=== PATIENT | female | born 1990 | race Caucasian/White ===

== ENCOUNTER 2025-05-22 12:12 | Emergency (ER) | payer BC, SELFPAY ==
[2025-05-22 12:30] VITALS: BP 137/93
--- NOTE | 2025-05-22 14:30 | ED.GENMED ---
History of Present Illness
General
Chief Complaint: Rabies
Source: patient
Exam Limitations: none
Time Seen by Provider: 05/22/25 13:42
History of Present Illness
History of Present Illness:
35-year-old female with no clinically significant past medical history is here with her family, they awakened with a bat in their home today informed to come get rabies shots. No known immediate exposure
Past History
Past History
ED Past Medical History: None
ED Past Surgical History: Tonsilectomy
Social History
Tobacco: Non-smoker
Personal:
Living: with family
Review of Systems
Review of Systems
Allergies reviewed?: Yes
All Other Systems: ROS reviewed and negative except as documented in HPI and ROS
Phy Exam
Physical Exam
Physical Exam:
GENERAL: No acute distress. A&Ox3.
CONSTITUTIONAL: Afebrile.
EYES: clear, conjunctivae normal
ENMT: moist mucus membranes, Pharynx nl
RESPIRATORY: Regular respirations, nonlabored, lungs clear.
CARDIOVASCULAR: Regular rate and rhythm, no murmurs, no rubs.
GI: Soft, nontender
MUSCULOSKELETAL: Moves with ease. Well perfused.
SKIN: Warm, dry, pink
PSYCH: Normal mood and affect. Well kept, interactive and appropriate
NEUROLOGIC: Awake, alert and oriented. No focal neurological deficits
Course
Orders/Labs/Results
Orders:
Orders
05/22/25 14:37
Rabies Immune Globulin/Pf [HyperRAB] 1,800 unit IM NOW STA
05/22/25 14:45
Rabies Vaccine (Pcec)/Pf [Rabavert Rabies Vacc W-Diluent] 2.5 unit IM .ONCE ONE
Vital Signs
Initial and Last Documented VS:
Initial Vital Signs
Temp Pulse Resp BP Pulse Ox
98.2 F 94 18 137/93 98
05/22/25 12:30 08/25/25 12:30 05/22/25 12:30 05/22/25 12:30 05/22/25 12:30
Last Documented Vital Signs
Temp Pulse Resp BP Pulse Ox
98.2 F 94 18 137/93 98
05/22/25 12:30 05/22/25 12:30 05/22/25 12:30 05/22/25 12:30 05/22/25 14:33
MDM/Problems Addressed
MDM/Problems Addressed:
35-year-old female with no clinically significant past medical history is here with her family, they awakened with a bat in their home today informed to come get rabies shots. No known immediate exposure
Rabies immunization protocol initiated
*Pulse Oximetry
SaO2: 98
Oxygen Mode of Delivery: Room air
Patient hypoxic: not evaluated
*Critical Care Note
Total Time (30-74mins, 75-104mins- exclusive of procedures): Not Applicable
ED Attending Note
-
Portions of this chart may have been created with voice recognition software.� Occasional wrong word or��sound alike� substitutions may have occurred due to the inherent limitations of voice recognition software.
Discharge Plan
Departure
Patient Disposition: Home (Routine Discharge)
Date of Disposition: 05/22/25
Time of Disposition: 15:33
Patient with high blood pressure during this ER visit?: No
Condition: Good
Discharge Problem:
Need for immunization against rabies
Prescriptions:
New
RabAvert (PF) 2.5 unit Suspension For Reconstitution
1 ml IM . DIRECTED Qty: 3 0RF
Rx Instructions:
See Rabies Vaccine Post Exposure Prophylaxis Instruction Sheet for Dosing Instructions
Stand Alone Forms: Rabies Vaccine Post Exp Dosing
Activity Restrictions/Additional Instructions:
As we discussed, call the outpatient infusion center at [phone] and make the appointment for your next rabies vaccines.
Take your prescription with you.
You will have to bring the children back here as the outpatient infusion center does not take pediatric patients.
Interventions
Interventions:
*Risk Screen - Suicide Last Done: 05/22/25 12:30
*Neglect/Abuse Screening Last Done: 05/22/25 12:30
*Nursing Disposition Last Done: 05/22/25 15:45
Discharge Date and Time
Discharge Date/Time: 05/22/25 16:42
Print Language: KOREAN
[2025-05-22] MEDS: RABAVERT RABIES VACC W-DILUENT 2.5 UNIT IM (15:20)
== END 2025-05-22 16:42 | disposition home or self-care (01) ==
LOC: EMR 12:12
PROVIDERS: EMERGENCY PHYSICIAN Emergency Medicine; FAMILY PHYSICIAN Family Medicine
DX: Z20.3 Contact with and (suspected) exposure to rabies (principal); Z23 Encounter for immunization; Z29.14 Encounter for prophylactic rabies immune globulin
CPT/HCPCS: 99281; 90471; 96372; 90375; 90675

== ENCOUNTER 2025-05-25 12:42 | Outpatient (RCR) | payer BC, SELFPAY ==
[2025-05-25 12:55] VITALS: BP 138/70
[2025-05-25] MEDS: RABAVERT RABIES VACC W-DILUENT 2.5 UNIT IM (13:09)
== END 2025-05-26 09:18 | disposition home or self-care (01) ==
LOC: OID 12:42
PROVIDERS: ATTENDING PHYSICIAN Emergency Medicine
DX: Z20.3 Contact with and (suspected) exposure to rabies (principal); Z23 Encounter for immunization
CPT/HCPCS: 90471; 90675

== ENCOUNTER 2025-06-05 14:34 | Outpatient (RCR) | payer BC, SELFPAY ==
[2025-05-30 13:50] VITALS: BP 113/75
[2025-05-30] MEDS: RABAVERT RABIES VACC W-DILUENT 2.5 UNIT IM (14:03)
[2025-06-05 14:40] VITALS: BP 115/73
[2025-06-05] MEDS: RABAVERT RABIES VACC W-DILUENT 2.5 UNIT IM (14:54)
== END 2025-06-06 11:14 | disposition home or self-care (01) ==
LOC: OID 14:34
PROVIDERS: ATTENDING PHYSICIAN Emergency Medicine
DX: Z20.3 Contact with and (suspected) exposure to rabies (principal); Z23 Encounter for immunization
CPT/HCPCS: 90471; 90675